=== PATIENT | female | born 1950 | race Caucasian/White ===

== ENCOUNTER 2020-04-07 15:00 | Outpatient (CLI) | payer OTHER ==
[~2020-04-07 15:00] MED LIST: HYDROCHLOROTH12.5 M1; IBUPROFEN800 MG PO; METFORMIN HCL500 MG; TAMS0.4C PO; TOPROL XL25 MG; ZANTAC300 MG PO; ZOFRAN4 MG PO
== END 2020-04-07 18:00 | disposition home or self-care (01) ==
LOC: PPH VACUNA 15:00
PROVIDERS: ATTEND Emergency Medicine Pediatric Emergency Medicine
DX: Z23 Encounter for immunization (principal)

== ENCOUNTER → 2020-04-28 08:00 | Outpatient (CLI) | payer OTHER | END | disposition home or self-care (01) | LOC: PPH VACUNA 08:00 | PROVIDERS: ATTEND Emergency Medicine Pediatric Emergency Medicine | DX: Z23 Encounter for immunization (principal) ==